=== PATIENT | female | born 1945 | race Caucasian/White ===

== ENCOUNTER → 2016-06-07 | Outpatient (CLI) | payer MEDICARE, OTHER ==
[~2016-06-07] MED LIST: ALTACE DPS10 MG PO; AMITIZA24 MCG PO; ASA CHILDREN'S81 MG PO; COLACE-DPS100 MG PO; COMPLETE MULTI1 EACH PO; EFFEXOR XR75 MG PO; ELAVIL-DPS50 MG PO; FLEXERIL-DPS10 MG PO; GABAPENTIN400 MG PO; HUMALOG KW200 UNIT/1 SQ; LANTUS100 UNITS/ SQ; LASIX DPS20 MG PO; LIPITOR DPS40 MG PO; MIRALAX PACKET17 GM PO; NEURONTIN DPS400 MG PO; OXY IR DPS5 MG PO; PROZAC40 MG PO; RISPERDAL1 MG PO; SENOKOT S1 TAB PO; TYLENOL DPS325 MG PO
== END | disposition home or self-care (01) ==
LOC: RAD.S 10:05
DX: M25.611 Stiffness of right shoulder, not elsewhere classified (principal); M12.811 Other specific arthropathies, not elsewhere classified, right shoulder; M71.521 Other bursitis, not elsewhere classified, right elbow